=== PATIENT | female | born 1955 | race Caucasian/White ===

== ENCOUNTER 2021-10-07 08:29 | Inpatient (IN) ==
--- NOTE | 2021-09-19 15:54 | PAT Medication Instructions ---
Medication Instructions Date of Service September 19, 2021 Home Medications bupropion HCl 300 mg 24 hr tablet, extended release (Wellbutrin XL) 300 mg PO QAM carvedilol 25 mg tablet 25 mg PO BID famotidine 20 mg tablet (Pepcid) 20 mg PO QAM ibuprofen 200 mg tablet 600 mg PO Q6H PRN oxycodone-acetaminophen 5 mg-325 mg tablet 1 tab PO Q8H PRN sertraline 50 mg tablet (Zoloft) 50 mg PO QAM verapamil 40 mg tablet 40 mg PO TID ASK your surgeon for instructions ibuprofen 200 mg tablet 600 mg PO Q6H PRN Take morning of surgery With a small sip of water, OTHERWISE NOTHING TO EAT OR DRINK AFTER MIDNIGHT: bupropion HCl 300 mg 24 hr tablet, extended release (Wellbutrin XL) 300 mg PO QAM carvedilol 25 mg tablet 25 mg PO BID famotidine 20 mg tablet (Pepcid) 20 mg PO QAM oxycodone-acetaminophen 5 mg-325 mg tablet 1 tab PO Q8H PRN(if needed) sertraline 50 mg tablet (Zoloft) 50 mg PO QAM verapamil 40 mg tablet 40 mg PO TID Take evening before surgery carvedilol 25 mg tablet 25 mg PO BID oxycodone-acetaminophen 5 mg-325 mg tablet 1 tab PO Q8H PRN(if needed) verapamil 40 mg tablet 40 mg PO TID Other Notes If you have any questions please call us at [phone] or [phone] or [phone] or [phone]
--- NOTE | 2021-09-22 13:30 | Anesthesiology Consultation ---
Date of Service September 22, 2021 Assessment & Plan (1) Encounter for pre-operative examination: Chart Review Chart Review: Acceptable Risk for Surgery (pending preop Covid testing results ) and Patient seen in Pre Admission Testing Per PAT appt on 09/22/21, patient denies any recent travel or large group activities. No known Covid positive exposures or Covid related symptoms. No known Covid infection in the past 90 days. Pt is vaccinated for Covid. Preop Covid testing scheduled 10/05/21 = will await results. Educated on importance of self quarantining, social distancing and wearing mask in public for the patient one week prior to surgery and after Covid testing done History Surgery Operation Date: 10/07/21 10:05 Proposed Procedures p L3-L4 Decompression and Fusion, L4-L5 Hardware Removal, Spinal Cord Monitoring - Juan Antonio Gayle, Height/Weight Height: 5 ft 9 in Weight: 106.3 kg Allergies Allergy/AdvReac Type Severity Reaction Status Date / Time celecoxib [From Celebrex] Allergy Mild Rash Verified 09/19/21 12:53 losartan Allergy Mild lips Verified 09/19/21 12:53 swelled sulfamethoxazole Allergy Mild Rash Verified 09/19/21 12:53 [From Bactrim] trimethoprim [From Bactrim] Allergy Mild Rash Verified 09/19/21 12:53 Medications Home Medications Medication Instructions Recorded Confirmed Last Taken bupropion HCl 300 mg 24 hr tablet, 300 mg PO QAM 09/19/21 09/19/21 Unknown extended release (Wellbutrin XL) carvedilol 25 mg tablet 25 mg PO BID 09/19/21 09/19/21 Unknown famotidine 20 mg tablet (Pepcid) 20 mg PO QAM 09/19/21 09/19/21 Unknown ibuprofen 200 mg tablet 600 mg PO Q6H PRN 09/19/21 09/19/21 Unknown oxycodone-acetaminophen 5 mg-325 1 tab PO Q8H PRN 09/19/21 09/19/21 Unknown mg tablet sertraline 50 mg tablet (Zoloft) 50 mg PO QAM 09/19/21 09/19/21 Unknown verapamil 40 mg tablet 40 mg PO TID 09/19/21 09/19/21 Unknown Past Medical History Medical History Anxiety Depression Dyslipidemia Diet controlled History of anesthesia problem Woke up during hysterectomy Hypertension Exercise / Class Metabolic Activity III < 4 Walking/Shop/Light housework (no chest pain or SOB flat surface am bulation ) Past Surgical History Surgical History H/O excision of lamina of cervical vertebra for decompression of spinal cord "04/2014 Dr. Gayle" H/O foot surgery History of carpal tunnel surgery right and left History of hysterectomy History of open reduction and internal fixation (ORIF) procedure left humerus Hx of bilateral cataract extraction Hx of decompression of ulnar nerve right Past Anesthesia History No Hx of Anesthesia Complications (with exception to awareness with hysterectomy- does not remember being intubation; shaking with previous surgeries post op- no issues with subsequent surgeries ) and No Family Hx of Anesthesia Complications (with exception daughter - awareness during anesthesia ) History of PONV No Hx of PONV and No Hx of Motion Sickness Social History Smoking Status: Current every day smoker tobacco type: cigarettes Smoking cigarettes per day: less than pack a day Do You Dip or Chew Tobacco: No Hx Alcohol Use: No Hx Substance Use: No substance use type: does not use Review of Systems Occ reflux- diet dependent Patient denies chest pain, shortness of breath, dyspnea on exertion,, cough, wheezing, palpitations. No hx of seizures, stroke, MS, apnea/snoring. No hx of blood clots or blood transfusions Physical Exam Vital Signs VITALS BP 148/80 P 66 TEMP 97.9 SP02 94% RESP 16 Constitutional no acute distress ENMT Mouth: no TMJ clicking Thyromental Distance: > or= 3.5 Finger Breadths (3.5) Mallampati Class: II (smaller airway ) Neck + thick neck and + limited neck extension Respiratory normal respiratory effort; no respiratory distress Auscultation: lungs clear to auscultation bilaterally and + diminished lung sounds (significantly throughout ); no wheezes Cardiovascular Rate/Rhythm: regular rate and regular rhythm Heart Sounds: no murmur Vessels: no carotid bruit Musculoskeletal Spine: + pain with cervical ROM (mild ) Extremities: extremities normal to inspection Psychiatric Orientation: alert Lab Results Anesthesia Preop Results Results Anesthesia Widget: WBC 12.20 K/uL (4.8-10.8) H 09/22/21 Hgb 15.4 g/dL (12.0-16.0) 09/22/21 Hct 46.1 % (37-47) 09/22/21 Plt 225 K/uL (130-400) 09/22/21 Na 138 mmol/L (136-145) 09/22/21 K 4.0 mmol/L (3.5-5.1) 09/22/21 Cl 105 mmol/L (98-107) 09/22/21 CO2 29 mmol/L (21-32) 09/22/21 BUN 13 mg/dl (6-23) 09/22/21 Creat 0.70 mg/dl (0.6-1.2) 09/22/21 Glucose Level 94 mg/dl (70-99(Fasting)) 09/22/21 PT 10.9 Seconds (9.0-12.0) 09/22/21 PTT 28.4 Seconds (21.0-31.0) 09/22/21 INR 1.0 (0.9-1.1) 09/22/21 Urine Color Yellow 09/22/21 Urine Appearance Clear (Clear) 09/22/21 Urine pH 5.5 (4.5-7.5) 09/22/21 Urine Specific [place] 1.020 (1.000-1.030) 09/22/21 Urine Protein Negative (Negative) 09/22/21 Urine Glucose (UA) Negative (Negative) 09/22/21 Urine Ketones Negative (Negative) 09/22/21 Urine Blood Negative (Negative) 09/22/21 Urine Nitrite Negative (Negative) 09/22/21 Urine Bilirubin Negative (Negative) 09/22/21 Urine Urobilinogen Negative (Negative) 09/22/21 Urine Leukocyte Esterase Negative (Negative) 09/22/21 Blood Type O Positive 09/22/21 Antibody Screen NEGATIVE 09/22/21 Testing Electrocardiogram Date: 09/22/21 Findings: + NSR @ (71bpm ) Normal EKG per cardio. Chest X-Ray Date: 09/22/21 Findings: + NAD and + cardiomegaly (mild ) FINDINGS: Postoperative findings within the spine and proximal left humerus are partially imaged. There is no pneumothorax or pleural effusion. Mild cardiomegaly is noted without evidence for pulmonary edema. No consolidation to suggest pneumonia. Biapical opacities are unchanged and favor scarring.
[~2021-10-07 08:29] MED LIST: ACETAMINOPHEN 500 MG TAB PO SCH; GABAPENTIN 600 MG DOSE PO SCH; LR 15ML/HR IV SCH; ceFAZolin 2000MG 2,000 MG/15 ML SYR IV SCH
--- NOTE | 2021-10-07 09:25 | History & Physical Bridge Note ---
Date of Service October 07, 2021 History & Physical Bridge Note I have examined the patient, reviewed the History & Physical and in the interval since the performance of the History & Physical I have noted the following changes of clinical significance: no changes noted
--- NOTE | 2021-10-07 09:26 | History & Physical Report ---
Date of Service October 07, 2021 Assessment & Plan (1) Neurogenic claudication due to lumbar spinal stenosis: Plan: L3-L4 decompression and fusion, L4-L5 hardware removal History of Present Illness Chief Complaint: Back and leg pain. Primary Care Provider: PETER Rai This is a 66-year-old female who presents with back and leg pain. Failing course of nonoperative care she is here for surgical invention. Allergies Allergy/AdvReac Type Severity Reaction Status Date / Time celecoxib [From Celebrex] Allergy Mild Rash Verified 09/19/21 12:53 losartan Allergy Mild lips Verified 09/19/21 12:53 swelled sulfamethoxazole Allergy Mild Rash Verified 09/19/21 12:53 [From Bactrim] trimethoprim [From Bactrim] Allergy Mild Rash Verified 09/19/21 12:53 Home Medications Medication Instructions Recorded Confirmed Type bupropion HCl 300 mg 24 hr tablet, 300 mg PO QAM 09/19/21 09/19/21 History extended release (Wellbutrin XL) carvedilol 25 mg tablet 25 mg PO BID 09/19/21 09/19/21 History famotidine 20 mg tablet (Pepcid) 20 mg PO QAM 09/19/21 09/19/21 History ibuprofen 200 mg tablet 600 mg PO Q6H PRN 09/19/21 09/19/21 History oxycodone-acetaminophen 5 mg-325 1 tab PO Q8H PRN 09/19/21 09/19/21 History mg tablet sertraline 50 mg tablet (Zoloft) 50 mg PO QAM 09/19/21 09/19/21 History verapamil 40 mg tablet 40 mg PO TID 09/19/21 09/19/21 History Past Med/Surg History Medical History Anxiety Depression Dyslipidemia Diet controlled History of anesthesia problem Woke up during hysterectomy Hypertension Surgical History H/O excision of lamina of cervical vertebra for decompression of spinal cord "04/2014 Dr. Gayle" H/O foot surgery History of carpal tunnel surgery right and left History of hysterectomy History of open reduction and internal fixation (ORIF) procedure left humerus Hx of bilateral cataract extraction Hx of decompression of ulnar nerve right Social History Smoking Status: Current every day smoker Cigarettes Per Day: less than pack a day; Second Hand Exposure: No; Do You Dip or Chew Tobacco: No; Tobacco Cessation Education Requested by Patient: No Hx Alcohol Use: No Hx Substance Use: No Preferred Language: Swiss Communication Ability: Effective Media Promoter Required: No Beliefs That Will Affect Care: None Current Living Situation: Alone Other Information That Helps Us Care for You: No Feels Safe at Home: Yes Safety Concerns: Feels Safe At This Time Assistive Devices: Cane and Glasses Physical Exam Physical Exam: Patient is alert and oriented Heart regular rhythm Lungs clear
[2021-10-07] MEDS ORDERED: LIDOCAINE 2% 2 ML VIAL/AMP(20MG/ML) INFIL ONE (09:41)
[2021-10-07] MEDS ORDERED: HYDROmorphone INJ 2 MG/ML SYR/VIAL ONE (09:41)
[2021-10-07] MEDS ORDERED: NEOSTIGMINE METHYLSULFATE 1 MG/ML 10ML VIAL ONE (09:41)
[2021-10-07] MEDS ORDERED: GLYCOPYRROLATE 0.2 MG/ML VIAL ONE (09:41)
[2021-10-07] MEDS ORDERED: ONDANSETRON INJ 2 MG/ML 2 ML VIAL ONE (09:41)
[2021-10-07] MEDS ORDERED: MIDAZOLAM HCL 1 MG/ML 2ML VIAL ONE (09:41)
[2021-10-07] MEDS ORDERED: PROPOFOL IV EMULSION 10 MG/ML 20 ML VIAL IV ONE (09:41)
[2021-10-07] MEDS ORDERED: DEXAMETHASONE SOD INJ 4 MG/ML VIAL ONE (09:41)
[2021-10-07] MEDS ORDERED: ROCURONIUM BROMIDE 10 MG/ML 5 ML VIAL IV ONE ×3 (09:41→12:17)
[2021-10-07] MEDS ORDERED: BUPIVACAINE/EPINEPHRINE 0.25% 1:200,000 30 ML VIAL ONE (09:53)
[2021-10-07] MEDS ORDERED: ceFAZolin 330 MG/ML 1 GM VIAL ONE (09:53)
[2021-10-07] MEDS ORDERED: fentaNYL citrate 100 MCG/2 ML VIAL IV PRN (10:02)
[2021-10-07] MEDS ORDERED: ONDANSETRON INJ 2 MG/ML 2 ML VIAL IV PRN ×2 (10:02→14:12)
[2021-10-07] MEDS ORDERED: HYDROmorphone INJ 2 MG/ML SYR/VIAL IV PRN (10:02)
[2021-10-07] MEDS ORDERED: ePHEDrine sulfate 50 MG/ML AMP IV PRN (10:02)
[2021-10-07] MEDS ORDERED: ATROPINE SULFATE 0.1 MG/ML 10ML SYR IV PRN (10:02)
[2021-10-07] MEDS ORDERED: PROMETHAZINE HCL 6.25 MG in SODIUM CHLORIDE 0.9% 50 ML IV PRN (10:02)
[2021-10-07] MEDS ORDERED: ePHEDrine sulfate 50 MG/ML AMP ONE (11:21)
[2021-10-07] MEDS ORDERED: fentaNYL citrate 100 MCG/2 ML VIAL ONE (12:10)
[2021-10-07] MEDS ORDERED: LABETALOL HCL IV 5 MG/ML 20ML IV ONE (12:21)
--- NOTE | 2021-10-07 12:21 | Operative Report ---
Post Operative Report Pre & Post Diagnosis Operation Date: 10/07/21 10:05 Pre-Op Diagnosis: Neurogenic Claudication due to Lumbar Spinal Stenosis Post-Op Diagnosis: Neurogenic Claudication due to Lumbar Spinal Stenosis I identified the patient and participated in the time-out.: Yes Procedure Operation Date: 10/07/21 10:05 Actual Procedures Or 1 removal of instrumentation L4-L5. #2 exploration of fusion L4-5. #3 lumbar decompression with bilateral medial facetectomies and foraminotomies L2- L3 L3-L4 per #4 posterior spinal fusion L3-L4. #5 placement posterior instrumentation L3-L5. #6 interbody fusion L3-L4. #7 placement of Spira cage 14 x 26 mm at L3-L4. #8 placement locally harvested morselized autograft in the posterior gutters. #9 placement of I factor combined with V toss in the interbody space and posterior lateral gutters. Surgeon Juan Antonio Gayle, DO Straw Hat Brim Raiser Operator Jarrod Triplett Estimated Blood Loss 200 Findings See Below The patient is 5 foot 9 weighing over 100 kg with a BMI in excess of 35. Patient's body habitus did contribute to significant technical difficulty requiring her deepest retractors and longer instruments in order to perform her procedure. This had at least 50% increased operative time. Specimens None Indications This is a 66-year-old female known to me the presents with above-mentioned diagnosis after failing course of nonoperative care is here for surgical invention. Description of Procedure Patient was met with identified informed consent obtained. Patient was then taken to the operative suite underwent a patient placed in a prone position the Adam table on top of the Placido frame. All bony prominences well-padded eyes inspected to ensure no external pressure placed upon the. This point lumbar spine was prepped and draped in the normal sterile fashion. Sharp dissection with assistance of Bovie cautery was performed down to and exposing the lamina and transverse processes of L3 and instrumentation at L4-L5 bilaterally. I then proceeded to move the hardware bilaterally explore the fusion mass noting it to be mature and intact. I then performed complete laminectomy L3 partial laminectomy of L2 including bilateral medial facetectomies and foraminotomies addressing severe spinal stenosis. Pedicle screws were then placed at L3 L4-5 bilaterally with assistance of fluoroscopy and the appropriately sized dominic placed. By way of a transforaminal approach on the right complete discectomy of L3-L4 was performed endplates curetted to subcortical bleeding bone and a 14 x 26 mm spiral cage filled with I factor tapped in position. The rods were then compressed locked in final position bilaterally. The transverse processes of L3-L4 burred to subcortical bleeding bone. I factor combined with V toss and locally harvested morselized autograft was placed in the posterior gutters. 15 round SINCERE drain inserted. The incision was then closed with 1 Vicryl the fascia 2-0 Vicryl subcutaneously and 4 Monocryl for final skin closure. Steri-Strip sterile dressings placed. Patient waken taken PACU in stable condition. Please note spinal cord monitoring was utilized at the procedure no changes noted. Lastly Jarrod Triplett was present out the entire surgery involved the patient positioning complex portions of the surgery and fascial closure. I attest to the content of the Intraoperative Record and any orders documented therein. Any exceptions are noted below.
--- NOTE | 2021-10-07 12:36 | Fluoroscopy Report ---
FL lumbar spine 2-3V HISTORY: 66 years-old Female L3-L4 DECOMP/FUSION, L4-L5 HARDWARE REMOVAL lumbar spine fusion COMPARISON: Radiographs 07/01/2015 TECHNIQUE: 3 spot fluoroscopic images of the lumbar spine were obtained utilizing 16.5 seconds fluoro scopy time FINDINGS: Posterior interbody dominic and screw fusion hardware is noted at the L3-L5 levels with L4-L5 discectomy. The hardware appears intact. Status post removal of the L3-L4 disc spacer. There is suggestion of conley rgical sponges projecting over the right hemipelvis on the frontal view. IMPRESSION: Fluoroscopic assistance as above. ACT 112: Negative or not required by law. The above report was generated using voice recognition software. It may contain grammatical, syntax o r spelling errors. Electronically signed by: Ernst Means M.D. 10/07/2021 12:35 PM
--- NOTE | 2021-10-07 13:29 | Anesthesiology Progress Note ---
Date of Service October 07, 2021 Anesthesia Post Procedure Vital Signs Vital Signs: Temp Pulse Pulse Resp BP Pulse Ox 10/07/21 13:20 61 14 121/62 95 10/07/21 13:10 63 14 117/61 95 10/07/21 13:00 64 18 124/66 95 10/07/21 12:51 36.1 C L 67 10 L 141/72 H 94 10/07/21 09:30 37 C 60 18 155/69 H 96 Pain Intensity Back: Pain Intensity: 0 Transfer of Care Handoff Completed per policy Notes Mental Status: alert / awake / arousable Patient Amnestic to Procedure: Yes Nausea / Vomiting: adequately controlled Pain: adequately controlled Airway Patency, RR, SpO2: stable & adequate BP & HR: stable & adequate Hydration State: stable & adequate Anesthetic Complications: no major complications apparent
[2021-10-07] MEDS ORDERED: SOD PHOSPHATE/SOD BIPHOSPHATE ENEMA 132 ML BTL PR PRN (14:12)
[2021-10-07] MEDS ORDERED: diphenhydrAMINE Capsule 25 MG CAP PO PRN (14:12)
[2021-10-07] MEDS ORDERED: NALOXONE HCL 0.4 MG/1 ML VIAL/CARP IV PRN (14:12)
[2021-10-07] MEDS ORDERED: MAGNESIUM HYDROXIDE SUSP 30 ML UDC PO PRN (14:12)
[2021-10-07] MEDS ORDERED: HYDROmorphone INJ 0.5 MG/0.5 ML SYR IV PRN (14:12)
[2021-10-07] MEDS ORDERED: FAMOTIDINE 20 MG TAB PO PRN (14:12)
[2021-10-07] MEDS ORDERED: hydrOXYzine HCl 25 MG TAB PO PRN (14:12)
[2021-10-07] MEDS ORDERED: PROMETHAZINE HCL 12.5 MG in SODIUM CHLORIDE 0.9% 50 ML IV PRN (14:12)
[2021-10-07] MEDS ORDERED: bisacodyL 10 MG SUPP PR PRN (14:12)
[2021-10-07] MEDS ORDERED: ONDANSETRON 4 MG OD TAB PO PRN (14:12)
[2021-10-07] MEDS ORDERED: LORazepam 0.5 MG in SYRINGE 0.25 ML IV PRN (14:12)
[2021-10-07] MEDS ORDERED: DO NOT ADMINISTER PNEUMOCOCCAL VACCINE PRN (14:12)
[2021-10-07] MEDS ORDERED: ACETAMINOPHEN 1,000 MG/100 ML VIAL IV PRN (14:12)
[2021-10-07] MEDS ORDERED: DO NOT ADMINISTER FLU VACCINE PRN (14:12)
[2021-10-07] MEDS ORDERED: HYDROmorphone INJ 1 MG/ML SYRINGE IV PRN (14:12)
[2021-10-07] MEDS ORDERED: LORazepam 0.5 MG TAB PO PRN (14:12)
[2021-10-07] MEDS ORDERED: ACETAMINOPHEN 500 MG TAB PO PRN (14:12)
[2021-10-07] MEDS ORDERED: ALUMINUM/MAGNESIUM SUSP 30 ML UDC PO PRN (14:12)
[2021-10-07] MEDS ORDERED: METOCLOPRAMIDE HCL INJ 5 MG/ML 2 ML VIAL IV PRN (14:12)
[2021-10-07] MEDS: SODIUM CHLORIDE 0.9% 1000ML 1,000 ML IV SCH ×2 (14:15→21:13)
[2021-10-07] MEDS: VERAPAMIL HCL 40 MG TAB PO SCH ×2 (15:49→20:18)
--- NOTE | 2021-10-07 17:23 | Hospitalist Consultation ---
Date of Consultation October 07, 2021 Assessment & Plan (1) S/P spinal surgery: (2) Neurogenic claudication due to lumbar spinal stenosis: This is a 66-year-old female with PMH of anxiety, depression, HTN, dyslipidemia who is POD #0 s/p L3-L4 Decompression and Fusion, Spinal Cord Monitoring by Dr. Gayle. Feeling well post-operatively with minimal surgical site pain. POD #0 s/p L3-L4 Decompression and Fusion, Spinal Cord Monitoring by Dr. Gayle Per ortho for pain control, wound care, anticoagulation and activities Monitor H&H (pre-op hgb 15.4, EBL 200ml), continue incentive spirometry, PT/OT when appropriate (3) Hypertension: Slightly elevated at 153/75. Optimize pain control. Continue verapamil (4) Depression: (5) Anxiety: Stable. Continue Zoloft, Wellbutrin (6) Dyslipidemia: Diet controlled PCP: PETER Curry Dispo: Per primary service Patient seen in collaboration with Dr. Casas. Please see addendum. Supervising Physician Co-Signing Physician Notes History and physical exam performed by ak History notable for 66year old woman who had L3-L4 decompression and fusion by Dr Gayle today for Neurogenic claudication due to lumbar spinal stenosis On physical exam General: Well hydrated,, no acute distress Eyes: PERRL, conjunctivae normal, not pale, anicteric sclerae, EOM intact bilaterally ENMT: External ear and nose normal, oropharynx normal Respiratory: Normal respiratory effort, no respiratory distress, lungs clear to auscultation, no crackles and no wheezes Cardiovascular: RRR S1 S2 Gastrointestinal (Abdomen): Abdomen is not distended, soft, non-tender to palpation, no guarding, no palpable hepatosplenomegaly, normal bowel sounds Musculoskeletal: No pedal edema. Dressing over surgical site with drain in situ Genitourinary: Tinsley in situ Neurologic: Alert and oriented x 3, No focal weakness, sensation grossly intact Psychiatric: Euthymic affect Neurogenic claudication due to spinal stenosis S/p L3-L4 Decompression and fusion Check CBC in AM Pain control and activity per primary Surgical team Continue home medication Agree with plans as detailed by Janet Ca PA-C History of Present Illness Reason for Consultation: Postop medical management Attending Physician: Juan Antonio Gayle DO History of Present Illness This is a 66-year-old female with PMH of anxiety, depression, HTN, dyslipidemia who is POD #0 s/p L3-L4 Decompression and Fusion, Spinal Cord Monitoring by Dr. Gayle. Feeling well post-operatively with minimal surgical site pain. Denies any weakness or pain of lower extremities. Tolerating dinner without issue. Denies fever, chills, headache, lightheadedness, chest pain, SOB, nausea, vomiting, abdominal pain, dysuria, diarrhea or constipation. Receives primary care by PETER Curry in [place]. Taking all medication as scheduled. Allergies Allergy/AdvReac Type Severity Reaction Status Date / Time celecoxib [From Celebrex] Allergy Mild Rash Verified 10/07/21 09:26 losartan Allergy Mild lips Verified 10/07/21 09:26 swelled sulfamethoxazole Allergy Mild Rash Verified 10/07/21 09:26 [From Bactrim] trimethoprim [From Bactrim] Allergy Mild Rash Verified 10/07/21 09:26 Home Medications Medication Instructions Recorded Confirmed Type bupropion HCl 300 mg 24 hr tablet, 300 mg PO QAM 09/19/21 10/07/21 History extended release (Wellbutrin XL) carvedilol 25 mg tablet 25 mg PO BID 09/19/21 10/07/21 History famotidine 20 mg tablet (Pepcid) 20 mg PO QAM 09/19/21 10/07/21 History ibuprofen 200 mg tablet 600 mg PO Q6H PRN 09/19/21 10/07/21 History oxycodone-acetaminophen 5 mg-325 1 tab PO Q8H PRN 09/19/21 10/07/21 History mg tablet sertraline 50 mg tablet (Zoloft) 50 mg PO QAM 09/19/21 10/07/21 History verapamil 40 mg tablet 40 mg PO TID 09/19/21 10/07/21 History Patient History Medical History (Updated 10/07/21 @ 17:50 by Janet Ca PA-C) Anxiety Depression Dyslipidemia Diet controlled History of anesthesia problem Woke up during hysterectomy Hypertension Surgical History (Updated 10/07/21 @ 17:41 by Janet Ca PA-C) H/O excision of lamina of cervical vertebra for decompression of spinal cord "04/2014 Dr. Gayle" H/O foot surgery History of carpal tunnel surgery right and left History of hysterectomy History of open reduction and internal fixation (ORIF) procedure left humerus Hx of bilateral cataract extraction Hx of decompression of ulnar nerve right Family History Other Heart disease Social History Smoking Status: Current every day smoker Cigarettes Per Day: less than pack a day; Second Hand Exposure: No; Do You Dip or Chew Tobacco: No; Tobacco Cessation Education Requested by Patient: No Hx Alcohol Use: No Hx Substance Use: No Preferred Language: [place] Communication Ability: Effective Underwriting Consultant Required: No Beliefs That Will Affect Care: None marital status: Single Current Living Situation: Alone Other Information That Helps Us Care for You: No Feels Safe at Home: Yes Safety Concerns: Feels Safe At This Time Assistive Devices: Walker Review of Systems Review of Systems: At least ten systems reviewed and negative except as noted in the HPI. Physical Exam Physical Exam: Please see Dr. Casas's addendum for physical exam. Results & Data Results & Data ([facility]) Vital Signs (Past 12 Hours) Vital Signs Temp Pulse Pulse Resp BP Pulse Ox 10/07/21 17:17 36.5 C 70 16 153/75 H 90 10/07/21 16:15 36.3 C L 66 16 170/82 H 91 10/07/21 15:15 36.6 C 62 16 162/87 H 95 10/07/21 14:43 36.8 C 67 16 152/82 H 91 10/07/21 14:15 36.4 C L 64 16 135/70 93 10/07/21 13:50 68 16 136/57 L 96 10/07/21 13:40 66 16 126/90 95 10/07/21 13:30 36.5 C 63 16 129/72 93 10/07/21 13:20 61 14 121/62 95 10/07/21 13:10 63 14 117/61 95 10/07/21 13:00 64 18 124/66 95 10/07/21 12:51 36.1 C L 67 10 L 141/72 H 94 10/07/21 09:30 37 C 60 18 155/69 H 96
[2021-10-07] MEDS: ceFAZolin 2000MG 2,000 MG/15 ML SYR IV SCH (18:11)
[2021-10-07] MEDS: oxyCODONE HCL IR 5 MG TAB (IMMEDIATE RELEASE) PO PRN (20:18)
[2021-10-07] MEDS: DOCUSATE SODIUM/SENNA 50/8.6MG TAB PO SCH (20:18)
[2021-10-07] MEDS ORDERED: carvediloL 25 MG TAB PO SCH (21:00)
[2021-10-08] MEDS: oxyCODONE HCL IR 5 MG TAB (IMMEDIATE RELEASE) PO PRN (02:18)
[2021-10-08] MEDS: ceFAZolin 2000MG 2,000 MG/15 ML SYR IV SCH (02:18)
[2021-10-08] MEDS: NICOTINE 14 MG/24 HR PATCH TD SCH ×2 (02:46→20:37)
[2021-10-08] MEDS ORDERED: SODIUM CHLORIDE 0.9% 1000ML 1,000 ML IV ONE (04:21)
[2021-10-08] MEDS: carvediloL 25 MG TAB PO SCH ×2 (04:38→20:35)
[2021-10-08] MEDS: POLYETHYLENE (MIRALAX) 17 GM PACK PO SCH ×3 (04:38→18:49)
[2021-10-08 08:11] LABS: Basophils # (auto) 0.01 K/uL (0-0.2); Basophils % (auto) 0.1 %; Hematocrit (blood only) 41.5 % (37-47); Hemoglobin 13.7 g/dL (12.0-16.0); Immature Granulocytes # (auto) 0.05 K/uL (0.00-0.02); Immature Granulocytes % (auto) 0.3 %; Lymphocytes % (auto) 13.5 %; Mean Corpuscular Hemoglobin 27.7 pg (25-34); Mean Platelet Volume 11.6 fL (7.4-10.4); Monocytes # (auto) 0.94 K/uL (0.11-0.59); Monocytes % (auto) 5.5 %; Neutrophils # (auto) 13.68 K/uL (1.4-6.5); Neutrophils % (auto) 80.6 %; Platelet Count 212 K/uL (130-400); RDW Coefficient of Variation 15.6 % (11.5-14.5); RDW Standard Deviation 48.4 fL (36.4-46.3); Red Blood Count 4.94 M/uL (4.2-5.4); White Blood Count 16.98 K/uL (4.8-10.8)
[2021-10-08 08:19] LABS: BUN Creatinine Ratio 22.6 (10-20); Calcium 8.9 mg/dl (8.5-10.1); Creatinine Clr Calc Pharmacy 120.5 ml/min; Est GFR (African American) 110.4 ml/min; Est GFR (Non-African American) 95.3 ml/min; Potassium 3.9 mmol/L (3.5-5.1)
[2021-10-08] MEDS: SERTRALINE HCL 50 MG TABLET PO SCH (08:28)
[2021-10-08] MEDS: VERAPAMIL HCL 40 MG TAB PO SCH ×3 (08:28→20:35)
[2021-10-08] MEDS: buPROPion XL 300 MG TABCR PO SCH (08:28)
[2021-10-08] MEDS: dexAMETHasone 6 MG in SYRINGE 0 ML IV SCH (08:28)
[2021-10-08] MEDS: FAMOTIDINE 20 MG TAB PO SCH (08:28)
[2021-10-08] MEDS: traMADol HCL 50 MG TABLET PO PRN ×2 (10:56→17:45)
--- NOTE | 2021-10-08 10:59 | Orthopedic Progress Note ---
Date of Service October 08, 2021 Assessment & Plan (1) Neurogenic claudication due to lumbar spinal stenosis: Plan: At this time continue physical therapy monitor her SINCERE output anticipate discharge home in the next few days. Admission and Anticipated Discharge Date Admission Date: October 07, 2021 Subjective Patient's back pain is controlled leg symptoms markedly improved Physical Exam Physical Exam: Patient is in the chair at the bedside. She is good strength testing. Appears comfortable. Results & Data ([facility]) Vital Signs (Past 12 Hours) Vital Signs Temp Pulse Resp BP Pulse Ox 10/08/21 07:44 36.6 C 70 16 160/78 H 93 10/08/21 04:10 36.5 C 70 18 184/77 H 92
[2021-10-08] MEDS ORDERED: hydrALAZINE HCL 20 MG/ML VIAL IV PRN (18:38)
[2021-10-08] MEDS ORDERED: hydrALAZINE HCL 20 MG/ML VIAL ONE (18:42)
[2021-10-08] MEDS: DOCUSATE SODIUM/SENNA 50/8.6MG TAB PO SCH (20:34)
--- NOTE | 2021-10-08 23:56 | Hospitalist Progress Note ---
Date of Service October 08, 2021 Assessment & Plan (1) S/P spinal surgery: (2) Neurogenic claudication due to lumbar spinal stenosis: Plan: This is a 66-year-old female with PMH of anxiety, depression, HTN, dyslipidemia who is POD #0 s/p L3-L4 Decompression and Fusion, Spinal Cord Monitoring by Dr. Gayle. Feeling well post-operatively with minimal surgical site pain. POD #1 s/p L3-L4 Decompression and Fusion, Spinal Cord Monitoring by Dr. Gayle No postop complication Continue pain control PT/OT eval Continue monitor H&H (3) Hypertension: Plan: BP elevated Possible related to hospital setting But patient said lately she has been under a lot of stress Continue verapamil 40 mg 3 times daily and carvedilol 25 mg twice daily Will add as needed hydralazine IV Continue monitor BP (4) Depression: (5) Anxiety: Plan: Continue Zoloft, Wellbutrin Stable (6) Dyslipidemia: Plan: Diet controlled DVT prophylaxis as per Ortho Disposition as per Ortho Admission and Anticipated Discharge Date Admission Date: October 07, 2021 Subjective Patient was seen and examined for postop follow-up Lying in bed with no acute distress Patient said pain is controlled Blood pressure is elevated. Patient said she is under a lot of stress lately Denies any chest pain, potation, dizziness, shortness of breath. Review of Systems Review of Systems: All systems reviewed & are unremarkable except as noted in Subjective Physical Exam Physical Exam: General- No acute distress Head- atraumatic Eyes- PERRL, EOMI, ENT- oropharynx clear Neck- supple, no JVD Lungs- clear to auscultation Heart- regular rhythm; no murmur Abdomen- normal bowel sounds, soft, nontender Extremities- no calf tenderness Neuro- alert, oriented x 3; PERRL, EOMI; no facial palsy; no dysarthria Skin- warm & dry Results & Data Results & Data ([facility]) Vital Signs (Past 12 Hours) Vital Signs Temp Pulse Pulse Resp BP BP Pulse Ox 10/08/21 22:44 36.5 C 78 17 184/83 H 93 10/08/21 20:36 77 193/83 H 10/08/21 16:35 36.8 C 71 16 185/81 H 93 10/08/21 13:44 78 176/83 H
[2021-10-09] MEDS: traMADol HCL 50 MG TABLET PO PRN ×3 (00:42→13:36)
[2021-10-09 06:08] LABS: Hematocrit (blood only) 43.1 % (37-47); Hemoglobin 14.4 g/dL (12.0-16.0); Mean Corpuscular Hgb Conc 33.4 g/dL (32-36); Mean Corpuscular Volume 83.7 fL (80-100); Mean Platelet Volume 11.3 fL (7.4-10.4); Platelet Count 199 K/uL (130-400); RDW Coefficient of Variation 15.8 % (11.5-14.5); RDW Standard Deviation 48.2 fL (36.4-46.3); Red Blood Count 5.15 M/uL (4.2-5.4)
--- NOTE | 2021-10-09 08:30 | Discharge Summary ---
Date of Service October 09, 2021 Admission HPI Per Admitting Provider This is a 66-year-old female who presents with back and leg pain. Failing course of nonoperative care she is here for surgical invention. Admission Exam (Per Admitting) Constitutional well developed, cooperative and comfortable Eyes normal visual garcia by confrontation Neck normal visual inspection Respiratory normal respiratory effort Cardiovascular Extremities: normal capillary refill Gastrointestinal (Abdomen) Inspection/Auscultation: abdomen normal to inspection Musculoskeletal Extremities: extremities normal to inspection and strength 5/5 throughout Skin no rashes, warm and dry Neurologic normal touch/pain/proprioception and moves all extremities Psychiatric A+Ox3, euthymic affect Apperance: appropriately dressed Eye Contact: good eye contact Discharge Data Consultations 10/07/21 14:12 Consult Hospitalist Routine Procedures Performed Operation Date: 10/07/21 10:05 Actual Procedures p L3-L4 Decompression and Fusion, Spinal Cord Monitoring(Not Applicable) - Juan Antonio Gayle DO s L4-L5 Hardware Removal(Not Applicable) - Juan Antonio Gayle DO Hospital Course (1) Neurogenic claudication due to lumbar spinal stenosis: Patient had an uncomplicated postoperative hospital course. She is leaving and going home on postoperative day 2 status post decompression instrumented fusion of L3-4, hard removal L4-5. She is doing great. Radicular pain is resolved. Back pain is controlled. She had a bowel movement. She is making great progress in physical therapy. Discharge Instructions ACTIVITY RECOMMENDATIONS: SELF CARE INSTRUCTIONS AFTER THORACIC/LUMBAR FUSIONS 1. You may walk to your tolerance. It is good exercise for your legs and back. Expect some back and intermittent leg aches and pains. 2. You may perform "counter-top" level activities (make a sandwich, anjel with a project, etc.). 3. No bending or lifting of more than 10 pounds or back twisting of any nature (roll like a log when turning in bed). 4. You may ride in a car for 20-30 minutes at a time. No driving until after your first visit with your doctor. 5. Frequent changes of position and restricting sitting to 30 minutes at a time will help limit the amount of back spasms and stiffness you may experience. 6. You may discontinue the use of ambulatory aids (cane, crutches, etc.) once your strength and confidence allow. 7. You may filling operator the shower and let water strike your incision when you arrive home at least once daily. Do not take a tub bath, sit in a hot tub or go into a swimming pool until after your first recheck in the office. SPECIAL CARE INSTRUCTIONS: VERY IMPORTANT TO READ AND REVIEW A. Your surgical incision has been closed with a cosmetic suture under the skin that will dissolve in about 6 weeks. In 14 days, you can use a pair of clean scissors and cut the suture that is left outside of the skin at the ends of your incision. 1. The small skin tapes can be removed 7 days after surgery if they have not fallen off by that point. 2. You may keep the wound open to air as much as possible to promote healing after post-op day number 5 unless told otherwise by your doctor. 3. If you think the wound looks like it is becoming infected (redness or worsening drainage) and/or you are experiencing fever, chill or worsening back pain and muscle spasms, contact the office so that we may evaluate you as soon as possible. B. Complications are uncommon, but please contact us if you have any signs or symptoms of: 1. wound infection (fever higher than 102.5 degrees F, redness, separation of wound, drainage, or increasing pain from the incision) 2. blood clots in legs (pain, swelling, redness and warmth in legs) 3. urinary tract infection (fever higher than 102.5 degrees F, burning upon urination or increased frequency of urination) 4. nerve problems (inability to walk on your toes or heels, numbness, loss of bowel or bladder control) 5. any other symptoms that concern you C. Please call the office at if you have any concerns or questions about your operation or recovery. D. No smoking! Smoking drastically decreases the chance of a solid fusion. E. Do not take any anti-inflammatory medications (Indocin, Advil, Motrin, Aspirin, Naprosyn, etc.) as these may inhibit the chance of a solid fusion. Tylenol is okay to take for pain. MANAGING PAIN AFTER SPINAL SURGERY 1. Narcotic medication is intended for short-term use and will be provided for surgical pain. Surgical pain usually lasts for a period of 4-6 weeks. Narcotic medication includes Percocet, Vicodin, Darvocet, Tylenol #3 or Lortab. 2. Longer-term pain is more appropriately treated with non-narcotic medication such as Tylenol ES. 3. Muscle spasm is not appropriately treated with narcotics. Muscle relaxers such as Soma, Flexeril or Skelaxin can be used along with Tylenol ES. 4. Remember that we all live with some "aches and pains". This is not unusual or uncommon after an injury or as we get older. a. Back pain is expected and may include muscle spasms for 4 to 6 weeks after surgery. The pain should gradually improve. If the pain worsens for no apparent reason, please contact the office. b. Intermittent leg pain may also be experienced and should not be concerned about unless it worsens for no apparent reason. If so, please contact the office. 5. We will provide appropriate medication within the normal guidelines of their prescribed use. We will also be very cautious and aware of potential abuse and extended duration of patients' medication needs. a. Pain medications are for your comfort and to assist with sleep and rest so that the tissue can heal. They are not provided in order to return to normal activity and should not be used through the day. To do so or worsening pain at night can result from ongoing tissue damage and development of tolerance to the prescribed medicine. 6. Please allow 2-3 days to process refills. Prescriptions will not be mailed but must be picked up at the office. FOLLOW UP VISIT: Keep your scheduled follow-up appointment. Any questions, please call the office at .
[2021-10-09] MEDS: buPROPion XL 300 MG TABCR PO SCH (08:40)
[2021-10-09] MEDS: carvediloL 25 MG TAB PO SCH (08:40)
[2021-10-09] MEDS: SERTRALINE HCL 50 MG TABLET PO SCH (08:40)
[2021-10-09] MEDS: VERAPAMIL HCL 40 MG TAB PO SCH ×2 (08:40→13:36)
[2021-10-09] MEDS: dexAMETHasone 6 MG in SYRINGE 0 ML IV SCH (08:40)
[2021-10-09] MEDS: FAMOTIDINE 20 MG TAB PO SCH (08:40)
--- NOTE | 2021-10-09 11:09 | Hospitalist Progress Note ---
Date of Service October 09, 2021 Assessment & Plan (1) S/P spinal surgery: (2) Neurogenic claudication due to lumbar spinal stenosis: Plan: This is a 66-year-old female with PMH of anxiety, depression, HTN, dyslipidemia who is POD #0 s/p L3-L4 Decompression and Fusion, Spinal Cord Monitoring by Dr. Gayle. Feeling well post-operatively with minimal surgical site pain. POD #2 s/p L3-L4 Decompression and Fusion, Spinal Cord Monitoring by Dr. Gayle No postop complication Continue pain control PT/OT eval Hgb stable (3) Hypertension: Plan: BP was elevated Possible related to hospital setting BP improved But patient said lately she has been under a lot of stress Continue verapamil 40 mg 3 times daily and carvedilol 25 mg twice daily Continue monitor BP (4) Depression: (5) Anxiety: Plan: Continue Zoloft, Wellbutrin Stable (6) Dyslipidemia: Plan: Diet controlled DVT prophylaxis as per Ortho Disposition as per Ortho Admission and Anticipated Discharge Date Admission Date: October 07, 2021 Subjective Patient was seen and examined for postop follow-up sitting in chair with no acute distress Patient said pain is controlled Denies any chest pain, potation, dizziness, shortness of breath. Review of Systems Review of Systems: All systems reviewed & are unremarkable except as noted in Subjective Physical Exam Physical Exam: General- No acute distress Head- atraumatic Eyes- PERRL, EOMI, ENT- oropharynx clear Neck- supple, no JVD Lungs- clear to auscultation Heart- regular rhythm; no murmur Abdomen- normal bowel sounds, soft, nontender Extremities- no calf tenderness Neuro- alert, oriented x 3; PERRL, EOMI; no facial palsy; no dysarthria Skin- warm & dry Results & Data Results & Data ([facility]) Vital Signs (Past 12 Hours) Vital Signs Temp Pulse Resp BP Pulse Ox 10/09/21 08:04 36.5 C 62 16 150/76 H 94 10/09/21 00:41 166/83 H
== END 2021-10-09 14:24 | disposition home or self-care (01) | DRG 455 ==
LOC: ASU 08:29 → 3E 12:25